=== PATIENT | male | born 1965 | race Caucasian/White ===

== ENCOUNTER 2020-01-20 12:02 | Outpatient (CLI) | payer OTHER, SELFPAY ==
--- NOTE | ~2020-01-20 | MR_ITS ---
EXAMINATION: MR lumbar spine wo con DATE: 01/20/2020 12:57 INDICATION: Chronic right-sided low back pain. TECHNIQUE: Magnetic resonance imaging (MRI) of the lumbar spine was performed without intravenous con trast. Sequences included sagittal T2-weighted FSE, sagittal T2-weighted FS FSE, sagittal T1-weighted FSE, and axial T2-weighted FSE. COMPARISON: None FINDINGS: There is 7 degrees dextrocurvature of lumbar spine. Vertebral body heights are normal. Ther e is mildly decreased disc height at L3-L4. The distal spinal cord signal intensity is normal. The co nus medullaris is at L1. The following disc levels are specifically discussed: L1-L2: The disc does not extend beyond the endplate margin. There is moderate bilateral facet joint o steoarthritis. There is no neural foraminal stenosis. There is no central canal stenosis. L2-L3: The disc does not extend beyond the endplate margin. There is moderate right and mild left fac et joint osteoarthritis. There is mild bilateral neural foraminal stenosis. There is no central canal stenosis. L3-L4: The disc is mildly bulging. There is severe bilateral facet joint osteoarthritis. There is mil d bilateral neural foraminal stenosis. There is no central canal stenosis. L4-L5: The disc does not extend beyond the endplate margin. There is severe bilateral facet joint ost eoarthritis. There is mild bilateral neural foraminal stenosis. There is mild central canal stenosis. L5-S1: The disc does not extend beyond the endplate margin. There is moderate bilateral facet joint o steoarthritis. There is no neural foraminal stenosis. There is no central canal stenosis. IMPRESSION: 1. Mild lumbar spondylosis. Reviewed, dictated and finalized at location A. SITE WASTEWATER SYSTEMS TECHNICIAN IMPRESSION: 1. Mild lumbar spondylosis.
== END 2020-01-20 12:03 | disposition home or self-care (01) ==
LOC: ANHIMG 12:07
PROVIDERS: PCP Student in an Organized Health Care Education/Training Program; Visit Provider Student in an Organized Health Care Education/Training Program
DX: M54.41 Lumbago with sciatica, right side (principal); G89.29 Other chronic pain; M47.896 Other spondylosis, lumbar region
CPT/HCPCS: 72148

== ENCOUNTER 2020-01-22 14:00 | Outpatient (RCR) | payer OTHER, SELFPAY ==
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
--- NOTE | 2020-01-02 11:55 | PTOPEVAL ---
Thank you for referring this patient to [facility]. Please review, sign, date and return this plan of care ANUJ. Pt has received 9 PT visits to address his back pain. He has improved with trunk range, improve LE and trunk strength, decreased pain at rest and with daily activities. He is consistently performing his HEP. He has progressed towards his therapy goals. He requires additional skilled therapy 2x/wk x 4 wk to achieve max potential and achieve therapy goals. I agree with and certify that the following plan of care is medically necessary. Referring Physician Date Attending Provider: Jovan Cerda, Referring Provider: *PT Outpatient Evaluation Start: 12/05/19 13:20 Freq: Status: Active Protocol: Document 01/02/20 10:59 CAP (Rec: 01/02/20 11:53 [facility] [id number]) Therapy Assessment Status Assessment Status Assessment Status Re-evaluation Outpatient Past Medical History Respiratory History Hx Chronic Obstructive Pulmonary Disease Yes (COPD) Gastrointestinal History Hx Gall Bladder Disease Yes: gall bladder removal Hx Hernia Yes: s/p hernia repair Musculoskeletal History Hx Back Pain Yes Hx Orthopedic Surgery Yes: club foot surgery Hx Other Musculoskeletal Disorders Yes: knee surgery 10 years Evaluation Information Problem Diagnosis right side low back with right sciatica Onset 10 years with increased symtpoms 3 months ago Cause unknown Subjective Information He cont to c/o burning, sharp Query Text:As Reported By Patient/ pain on the right side of his Family low back. He reports cont limitation with prolong standing. He is able to walk for 20' then his back significantly increases. He is performing his HEP consistently. He is able to stand for IADL's for 10'. He is able to perform recreational act of playing with dog for 5'. He has increased pain with carrying objects up the steps. He has not tried this task since he started therapy. He is able to sleep better, but cont to have stiffness when he first gets out of bed. He uses 1 pillow under his head when sleeping. No pillows at knees. He reports the legs
--- NOTE | 2020-01-22 12:41 | PCPTNOTE ---
Patient called & cancelled scheduled appointment this date due to awaiting MRI results
--- NOTE | 2020-01-30 12:41 | PCPTNOTE ---
Patient did not show up for scheduled appointment this date.Called pt and left message regarding no show today.
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
--- NOTE | 2020-02-22 13:46 | PCPTNOTE ---
Admitting Provider: Attending Provider: Jovan Dawn, Patient:Clark Hogue Date of :1965 Patient has not returned for any further treatments since 01/10/2020, therefore he will be discharged from therapy at this time. He attended 10 therapy visits from 12/05/19-01/30/20 with 2 cancel/no show visits. The goals have been partially achieved at this time.. Thank you for referring this patient to [facility]. Please review, sign, date and return this discharge summary ANUJ. I have been updated about the patient's current status and I agree with discharge from the above service at this time. Referring Physician Date
== END 2020-02-22 13:58 | disposition home or self-care (01) ==
LOC: ANHPT 14:00
PROVIDERS: PCP Student in an Organized Health Care Education/Training Program; Visit Provider Student in an Organized Health Care Education/Training Program
DX: M54.41 Lumbago with sciatica, right side (principal); G89.29 Other chronic pain
CPT/HCPCS: 97014; 97110; 97140; 97530; G0283

== ENCOUNTER 2020-07-17 12:46 | Outpatient (CLI) | payer OTHER, SELFPAY ==
[2020-07-17 13:40] LABS: Basophils Absolute Auto 0.1 K/mm3 (0.0-0.1); Basophils Percent Auto 1.4 % (0.2-1.2); Eosinophils Absolute Auto 0.3 K/mm3 (0-0.3); Eosinophils Percent Auto 4.6 % (0-4.4); Hemoglobin 14.7 g/dL (14.0-18.0); Immature Granulocyte Absolute 0.03 K/mm3 (0.00-0.031); Immature Granulocyte Percent A 0.5 % (0-0.5); Lymphocytes Absolute Auto 2.08 K/mm3 (0.9-3.2); Lymphocytes Percent Auto 32.1 % (18.3-44.2); Mean Corpuscular Hemoglobin 34.2 pg (26-34); Mean Corpuscular Volume 97.7 fl (80-100); Mean Platelet Volume 11.7 fl (7.4-10.4); Monocytes Absolute Auto 0.6 K/mm3 (0.1-0.6); Monocytes Percent Auto 8.6 % (2.6-8.5); Neutrophils Absolute Auto 3.4 K/mm3 (1.3-6.7); Neutrophils Percent Auto 52.8 % (45.5-73.1); Platelet Count Result 93 k/mm3 (150-375); Red Cell Distribution Width 12.3 % (11.5-14.5); White Blood Count 6.5 K/mm3 (4.5-10.0)
[2020-07-17 13:56] LABS: Alanine Aminotransferase 24 U/L (4-50); Albumin Level 4.3 g/dL (3.5-5.1); Alkaline Phosphatase 57 U/L (38-126); Anion Gap 7 mmol/L (8-16); Aspartate Amino Transferase 31 U/L (17-59); Bilirubin,Total 0.8 mg/dL (0.2-1.3); Blood Urea Nitrogen 13 mg/dL (9-20); Carbon Dioxide 24 mmol/L (22-30); Chloride 105 mmol/L (98-107); Cholesterol 157 mg/dL (0-200); Estimated Glomerular Filt Rate > 60; Glucose 103 mg/dL (75-110); HDL Direct 38 mg/dL; Potassium 4.3 mmol/L (3.4-5.0); Sodium 136 mmol/L (137-145); Triglycerides 139 mg/dL (<150)
[2020-07-17 14:06] LABS: LDL Cholesterol Direct 86 mg/dL
[2020-07-17 14:24] LABS: Prostate Specific Antigen 1.5 ng/mL (< OR = 4.0)
[2020-07-17 15:52] LABS: Hepatitis C Virus Antibody Negative (Negative)
== END 2020-07-17 12:47 | disposition home or self-care (01) ==
LOC: ANHLAB 12:50
PROVIDERS: PCP Student in an Organized Health Care Education/Training Program; Visit Provider Student in an Organized Health Care Education/Training Program
DX: Z13.29 Encounter for screening for other suspected endocrine disorder (principal); Z13.228 Encounter for screening for other metabolic disorders; Z13.0 Encounter for screening for diseases of the blood and blood-forming organs and certain disorders involving the immune mechanism; Z12.5 Encounter for screening for malignant neoplasm of prostate; Z11.59 Encounter for screening for other viral diseases
CPT/HCPCS: 36415; 80053; 80061; 84153; 84443; 85025; 86803; G0103

== ENCOUNTER 2020-09-02 15:55 | Outpatient (CLI) | payer OTHER, SELFPAY ==
--- NOTE | ~2020-09-02 | US_ITS ---
EXAMINATION: US venous doppler [facility] DATE: 09/02/2020 16:39 INDICATION: Left lower limb pain and swelling TECHNIQUE: Grayscale ultrasound images without and with compression and Doppler ultrasound images of the left lower extremity veins were obtained. COMPARISON: None. FINDINGS: The visualized portions of left common femoral vein, profunda (deep) femoral vein, femoral vein, popl iteal vein, peroneal veins, posterior tibial veins, gastrocnemius vein and greater saphenous vein out flow are patent. There appears to be noncompressible occlusive appearing thrombus within a small subc utaneous varicosity at the posterior left calf with vessels measuring up to 5 mm in maximal diameter. IMPRESSION: 1. No deep venous thrombosis in the left lower limb. 2. Thrombophlebitis with occlusive noncompressible thrombus within a superficial small subcutaneous v aricosities at the posterior left calf. Reviewed, dictated and finalized at location B. IMPRESSION: 1. No deep venous thrombosis in the left lower limb. 2. Thrombophlebitis with occlusive noncompressible thrombus within a superficia l small subcutaneous varicosities at the posterior left calf.
== END 2020-09-02 15:56 | disposition home or self-care (01) ==
PROVIDERS: PCP Student in an Organized Health Care Education/Training Program; Visit Provider Student in an Organized Health Care Education/Training Program
DX: M79.605 Pain in left leg (principal); M79.89 Other specified soft tissue disorders; I83.892 Varicose veins of left lower extremity with other complications; I80.02 Phlebitis and thrombophlebitis of superficial vessels of left lower extremity
CPT/HCPCS: 93971

== ENCOUNTER 2020-09-17 08:16 | Outpatient (CLI) | payer OTHER, SELFPAY ==
--- NOTE | ~2020-09-17 | CT_ITS ---
EXAMINATION: CT chest wo con DATE: 09/17/2020 08:43 INDICATION: Chronic bronchitis, unspec; multiple lung nodules on CT TECHNIQUE: Computed tomography (CT) of the chest was performed without intravenous contrast. Addition al 3D reconstructions utilizing coronal maximum intensity projection (MIP) were performed. Automated exposure control and iterative reconstruction technique were employed. The dose-length product was 52 5.55 mGy-cm. COMPARISON: None FINDINGS: Right apical bleb. Mild atelectasis/scarring at the lingula. Calcified nodule at the right apex and s uperior segment of the left lower lobe with calcified left hilar lymph nodes consistent with old gran ulomatous disease. Minimal mucous plugging in a few of the smaller subsegmental bronchi in the right upper and middle lobes. There are couple additional <4 mm nodules in the right middle lobe. No pneumo ronak, pulmonary edema or pleural effusion. Heart size is normal. Small amount of atherosclerotic coron josie artery calcification. No pericardial effusion. No pathologically enlarged thoracic lymphadenopath y. There appear to be multiple small collateral vessels in the superior mediastinum which may be rela margaret to apparent compression of the left internal jugular vein by the enlarged left thyroid lobe which appears to result from a large left thyroid nodule with poorly defined margins. Shrunken and nodular liver consistent with cirrhosis. Large perihepatic collateral likely related to portal venous hypert ension. Gallbladder not visualized and likely surgically absent. Moderate thoracic spondylosis with m inimal anterior wedging of a few mid thoracic vertebral bodies. IMPRESSION: 1. A few <4 mm noncalcified nodules in the right middle lobe most likely sequela of old granulomatous disease. If the patient is low risk for lung cancer, no follow-up is needed. If the patient is high risk (i.e., history of smoking or asbestos or significant radiation exposure), optional follow-up [facility] CT could be considered at 12 months. 2. Enlarged left thyroid lobe suggesting a large left thyroid nodule with exerts mass effect upon the left internal jugular vein. Consider thyroid ultrasound for risk stratification. 3. Cirrhosis with likely portal venous hypertension. Reviewed, dictated and finalized at location B. IMPRESSION: 1. A few <4 mm noncalcified nodules in the right middle lobe most likely sequel a of old granulomatous disease. If the patient is low risk for lung cancer, no follow-up is needed. If the patient is high risk (i.e., history of smoking or a sbestos or significant radiation exposure), optional follow-up chest CT could b e considered at 12 months. 2. Enlarged left thyroid lobe suggesting a large left thyroid nodule with exert s mass effect upon the left internal jugular vein. Consider thyroid ultrasound for risk stratification. 3. Cirrhosis with likely portal venous hypertension.
== END 2020-09-17 08:17 | disposition home or self-care (01) ==
PROVIDERS: PCP Student in an Organized Health Care Education/Training Program; Visit Provider Student in an Organized Health Care Education/Training Program
DX: J42 Unspecified chronic bronchitis (principal); R91.8 Other nonspecific abnormal finding of lung field; K74.69 Other cirrhosis of liver
CPT/HCPCS: 71250

== ENCOUNTER 2020-10-08 12:48 | Outpatient (CLI) | payer OTHER, SELFPAY ==
--- NOTE | ~2020-10-08 | US_ITS ---
EXAMINATION: US thyroid DATE: 10/08/2020 13:10 INDICATION: Thyroid nodule TECHNIQUE: Multiple ultrasound images of the thyroid were obtained. COMPARISON: None. FINDINGS: The right thyroid lobe measures 6.1 x 2.7 x 1.7 cm. The left thyroid lobe measures 6.2 x 3.5 x 3.7 c m. 3.6 cm wider than tall spongiform nodule with smooth margins in the left thyroid lobe (TI-RADS 1, benign, no FNA recommended). There are a few additional scattered subcentimeter nodules in the right thyroid lobe, the largest include a pair of 9 mm wider than tall nodules with smooth margins, one so lid and isoechoic without echogenic foci (TI-RADS 3, mildly suspicious , FNA if >=2.5 cm, annual foll owup is >1.5 cm) and the second also TI RADS 1 spongiform nodule. The remaining nodules all measure < 5 mm. IMPRESSION: 1. No significant interval change in a multinodular goiter with no nodules meet criteria for biopsy o r follow-up. Recommend clinical followup with repeat imaging if there are changes on physical exam. Reviewed, dictated and finalized at location H. ET FLAP CREASING MACHINE OPERATOR IMPRESSION: 1. No significant interval change in a multinodular goiter with no nodules meet criteria for biopsy or follow-up. Recommend clinical followup with repeat imag ing if there are changes on physical exam.
== END 2020-10-08 12:49 | disposition home or self-care (01) ==
PROVIDERS: PCP Student in an Organized Health Care Education/Training Program; Visit Provider Student in an Organized Health Care Education/Training Program
DX: E04.1 Nontoxic single thyroid nodule (principal)
CPT/HCPCS: 76536